=== PATIENT | female | born 1965 | race Hispanic/Latino ===

== ENCOUNTER 2017-10-08 09:28 | Outpatient (CLI) | payer BC ==
--- NOTE | 2017-10-29 12:35 | MMO ---
BILATERAL SCREENING MAMMOGRAM: HISTORY: Annual screening exam. COMPARISON: Exams from 09/30/2016, 03/27/2016, 07/27/2015, 02/03/2015, and 06/24/2012. FINDINGS: Films are reviewed with the assistance of computer aided detection. Scattered fibroglandular changes of both breasts are noted. Calcifications are seen in both breasts. These calcifications appear stable, dating back to the 2014 study, with a slight increase in the nu mber of calcifications since 2011, but they appear to be scattered. IMPRESSION: BI-RADS Category 2: Benign findings. POS: KATARINA
== END 2017-10-08 09:29 | disposition home or self-care (01) ==
LOC: SCSMAMMO 09:28
PROVIDERS: ATTEND Obstetrics & Gynecology
DX: Z12.31 Encounter for screening mammogram for malignant neoplasm of breast (principal)
CPT/HCPCS: 77067; G0202

== ENCOUNTER 2018-10-09 12:33 | Outpatient (CLI) | payer OTHER | END 2018-10-09 12:34 | disposition home or self-care (01) | LOC: BICMAMMO 12:33 | PROVIDERS: ATTEND Obstetrics & Gynecology | DX: Z12.31 Encounter for screening mammogram for malignant neoplasm of breast (principal); Z80.3 Family history of malignant neoplasm of breast | CPT/HCPCS: 77063; 77067 ==

== ENCOUNTER 2019-06-30 16:37 | Outpatient (CLI) | payer BC ==
--- NOTE | 2019-07-01 17:32 | EKG ---
Test Reason : Blood Pressure : / mmHG Vent. Rate : 077 BPM Atrial Rate : 077 BPM P-R Int : 154 ms QRS Dur : 090 ms QT Int : 402 ms P-R-T Axes : 055 039 023 degrees QTc Int : 454 ms Normal sinus rhythm Cannot rule out Anterior infarct , age undetermined Abnormal ECG Confirmed by DOMINICK RIVAS ([id number]) on 07/01/2019 5:31:52 PM Referred By: EMMA Confirmed By:DOMINICK RIVAS
== END 2019-06-30 16:38 | disposition home or self-care (01) ==
LOC: LABBT 16:37
PROVIDERS: ATTEND Obstetrics & Gynecology
DX: Z01.818 Encounter for other preprocedural examination (principal); D25.9 Leiomyoma of uterus, unspecified; R10.2 Pelvic and perineal pain
CPT/HCPCS: 93005; 93010

== ENCOUNTER 2019-11-25 10:40 | Outpatient (CLI) | payer BC ==
--- NOTE | 2019-11-25 12:18 | MRI ---
MRI RIGHT SHOULDER WITHOUT IV CONTRAST: HISTORY: Traumatic complete tear, right rotator cuff, following a lifting injury. TECHNIQUE: Multiplanar, multisequence MR examination of the right shoulder is performed. FINDINGS: There are AC joint arthrosis changes with some downsloping of the anterior and lateral acromion with minimal fluid in the subacromial/subdeltoid bursa. Undersurface spurring of the lateral clavicle. The re is some focal abnormal high signal involving the conjoined tendon region of the supraspinatus tend on and conjoined tendon region with some linear and slightly nodular signal extending into the myoten dinous region, evidence for a delaminating tear with a small sentinel cyst. The focal area of thicken ing of the supraspinatus and conjoined tendon, at the level of the magic angle could well be related to focal tendinopathy. Given history of acute injury, conceivably this could represent some minimal f ocal intratendinous contusion. There is no evidence for a complete retracted tendon tear. The biceps tendon and the subscapularis tendons appear intact. The infraspinatus tendon appears intact. No acute osteochondral defect or significant abnormal marrow signal. IMPRESSION: 1. Focal are of some thickening and increased signal at the level of the magic angle of the supraspin atus and conjoined tendon, possibly focal tendinopathy versus some focal contusion. 2. Interstitial, minimally delaminating tear of the supraspinatus tendon and conjoined tendon, extend ing to the myotendinous region. 3. Minimal fluid in the subacromial/subdeltoid bursa. 4. Acromioclavicular joint arthrosis. 5. The visualized labrum is unremarkable. POS: OFF
== END 2019-11-25 10:41 | disposition home or self-care (01) ==
LOC: SCSMRI 10:40
PROVIDERS: ATTEND Orthopaedic Surgery
DX: S46.011A Strain of muscle(s) and tendon(s) of the rotator cuff of right shoulder, initial encounter (principal); M75.41 Impingement syndrome of right shoulder; S43.431A Superior glenoid labrum lesion of right shoulder, initial encounter; M19.011 Primary osteoarthritis, right shoulder; S46.811A Strain of other muscles, fascia and tendons at shoulder and upper arm level, right arm, initial encounter

== ENCOUNTER 2019-12-02 05:55 | Outpatient (CLI) | payer BC ==
[2019-12-02 17:25] LABS: Hemoglobin 12.4 g/dL (12.0-16.0); Mean Corpuscular HGB CONC 31.1 g/dL (32.0-36.0); Mean Corpuscular Hemoglobin 26.4 pg (27.0-31.0); Mean Corpuscular Volume 84.8 fL (78.0-98.0); Mean Platelet Volume 10.9 fL (7.4-10.4); Platelet Count 189 thou/uL (130-400); RBC Distribution Width 11.9 % (11.5-14.5); Red Blood Cell (RBC) Count 4.72 mill/uL (4.20-5.40); White Blood Cell (WBC) Count 8.3 thou/uL (4.8-10.8)
[2019-12-02 17:41] LABS: Anion Gap 11 mmol/L (10-20); BUN (Urea Nitrogen) 9 mg/dL (9.8-20.1); Calc. Creatinine Clearance 0 mL/min (70-130); Calcium 9.5 mg/dL (7.8-10.44); Carbon Dioxide 28 mmol/L (22-29); Chloride 103 mmol/L (98-107); Estimated GFR-MDRD 76; Glucose 179 mg/dL (70-105); Potassium 3.7 mmol/L (3.5-5.1); Sodium 138 mmol/L (136-145)
== END 2019-12-02 05:56 | disposition home or self-care (01) ==
LOC: LABBT 05:55
PROVIDERS: ATTEND Obstetrics & Gynecology
DX: Z01.818 Encounter for other preprocedural examination (principal); D25.9 Leiomyoma of uterus, unspecified; R10.2 Pelvic and perineal pain
CPT/HCPCS: 80048; 85027; 86850; 86900; 86901; 93005; 93010

== ENCOUNTER 2019-12-07 05:48 | Day surgery (SDC) | payer BC ==
[2019-12-02 15:17] VITALS: BMI 35.7
[2019-12-07] MEDS ORDERED: Gabapentin 300 MG CAP ONE (06:35)
[2019-12-07] MEDS ORDERED: CeleCOXIB 100 MG CAP ONE (06:36)
[2019-12-07] MEDS ORDERED: Famotidine/PF 20 mg/2ml Vial ONE (06:36)
[2019-12-07] MEDS ORDERED: Fentanyl 250 MCG/5 ML VIAL ONE (06:45)
[2019-12-07] MEDS ORDERED: Midazolam HCl 2 mg/2 ml Vial ONE (06:45)
[2019-12-07] MEDS ORDERED: Acetaminophen 500 MG TAB ONE (06:46)
[2019-12-07] MEDS ORDERED: Lidocaine 1% w/Epinephrine 1:100K 20 ML VIAL ONE (07:06)
[2019-12-07] MEDS ORDERED: Bupivacaine PF 0.5% 30 ML VIAL ONE (07:06)
[2019-12-07] MEDS ORDERED: Ropivacaine HCl/PF 750 ML in Premix Bag 1 BAG NERVE BLCK SCH (07:45)
[2019-12-07] MEDS ORDERED: Methylene Blue 50 MG/10 ML AMPUL ONE (09:08)
[2019-12-07] MEDS ORDERED: Simethicone Chewable 80 MG TAB PO PRN (10:56)
[2019-12-07] MEDS ORDERED: HYDROcodone/Acetaminophen 5/325 mg Tablet PO PRN ×2 (10:56)
[2019-12-07] MEDS ORDERED: traMADol HCl 50 MG TAB PO PRN ×2 (10:56)
[2019-12-07] MEDS ORDERED: Promethazine HCl 25 MG/ML VIAL IM PRN ×2 (10:56→11:18)
[2019-12-07] MEDS ORDERED: diphenhydrAMINE 25 MG CAP PO PRN (10:56)
[2019-12-07] MEDS ORDERED: Acetaminophen 325 MG TAB PO PRN (10:56)
[2019-12-07] MEDS ORDERED: Morphine 4 MG/ML VIAL SLOW IVP PRN (10:56)
[2019-12-07] MEDS ORDERED: Bisacodyl 10 MG SUPP PR PRN (10:56)
[2019-12-07] MEDS ORDERED: Ondansetron PF 4 MG/2 ML Vial IVP PRN (10:56)
[2019-12-07] MEDS ORDERED: Zolpidem Tartrate 5 MG TAB PO PRN (10:56)
[2019-12-07] MEDS ORDERED: Promethazine HCl 25 MG/ML VIAL SLOW IVP PRN (11:18)
[2019-12-07] MEDS ORDERED: Ondansetron HCl/PF 4 MG/2 ML Vial IVP PRN (11:18)
[2019-12-07] MEDS ORDERED: Ondansetron PF 4 MG/2 ML Vial ONE (12:06)
[2019-12-07] MEDS ORDERED: Rocuronium Bromide 10 MG/ML (10ML VIAL) ONE (12:06)
[2019-12-07] MEDS ORDERED: PHENYLEPHRINE-NS 100 MCG/ML 10 ML SYRINGE ONE (12:06)
[2019-12-07] MEDS ORDERED: EPHEDRINE 25 MG/5 ML SYRINGE ONE (12:06)
[2019-12-07] MEDS ORDERED: PROPOFOL 200 MG/20 ML VIAL ONE (12:06)
[2019-12-07] MEDS ORDERED: Dexamethasone 20 MG/5 ML VIAL ONE (12:06)
[2019-12-07] MEDS ORDERED: Glycopyrrolate 0.2 MG/ML 5 ML SYRINGE ONE (12:06)
[2019-12-07] MEDS ORDERED: Lidocaine 1% PF 5 ML VIAL ONE (12:06)
[2019-12-07] MEDS: Lactated Ringer's 1,000 ML IV SCH ×2 (13:54→16:53)
[2019-12-07] MEDS: Ibuprofen 800 MG TAB PO SCH ×2 (13:57→23:34)
[2019-12-07] MEDS ORDERED: Dextrose 50% Abboject 50 ML SYRINGE IVP PRN (14:33)
[2019-12-07] MEDS ORDERED: Dextrose 5% in Water 1,000 ML IV PRN (14:33)
[2019-12-07] MEDS: HumaLOG 300 UNITS/3 ML VIAL SC PRN ×2 (14:40→16:54)
[2019-12-07] MEDS ORDERED: metFORMIN 500 MG TAB PO SCH (17:00)
[2019-12-07] MEDS ORDERED: Alogliptin 6.25 MG TAB PO SCH (21:00)
[2019-12-07] MEDS ORDERED: Scopolamine 1.5 mg/72 hour Patch TOP SCH (23:00)
[2019-12-08] MEDS: Ibuprofen 800 MG TAB PO SCH (05:57)
[2019-12-08] MEDS: Lactated Ringer's 1,000 ML IV SCH (05:57)
[2019-12-08] MEDS ORDERED: Levothyroxine Sodium 100 MCG TAB PO SCH (06:00)
[2019-12-08 06:12] LABS: Hemoglobin 11.1 g/dL (12.0-16.0); Mean Corpuscular HGB CONC 34.4 g/dL (32.0-36.0); Mean Corpuscular Hemoglobin 29.4 pg (27.0-31.0); Mean Corpuscular Volume 85.4 fL (78.0-98.0); Mean Platelet Volume 10.9 fL (7.4-10.4); Platelet Count 161 thou/uL (130-400); RBC Distribution Width 11.9 % (11.5-14.5); Red Blood Cell (RBC) Count 3.77 mill/uL (4.20-5.40); White Blood Cell (WBC) Count 11.7 thou/uL (4.8-10.8)
[2019-12-08 06:30] LABS: Anion Gap 12 mmol/L (10-20); BUN (Urea Nitrogen) 8 mg/dL (9.8-20.1); Calc. Creatinine Clearance 118 mL/min (70-130); Carbon Dioxide 26 mmol/L (22-29); Chloride 104 mmol/L (98-107); Estimated GFR-MDRD 78; Glucose 138 mg/dL (70-105); Potassium 3.9 mmol/L (3.5-5.1); Sodium 138 mmol/L (136-145)
[2019-12-08 07:56] VITALS: BP 135/69; TEMP 97.9
--- NOTE | 2019-12-08 08:13 | OP ---
DATE OF PROCEDURE: 12/07/2019 PREOPERATIVE DIAGNOSES: 1. Chronic pelvic pain. 2. Uterine fibroid, possible cervical fibroid. POSTOPERATIVE DIAGNOSES: 1. Chronic pelvic pain. 2. Occiput posterior cervical fibroid. PROCEDURES PERFORMED: 1. Robotic-assisted total laparoscopic hysterectomy with initial myomectomy. 2. Extracorporeal morcellation of the posterior cervical fibroid. 3. Bilateral salpingo-oophorectomy. 4. Cystoscopy. NIPPLE MACHINE OPERATOR: Betty Silverman MD COMPLICATIONS: None. ANESTHESIA: General. ESTIMATED BLOOD LOSS: 50 mL. IV FLUIDS: 1500 mL. URINARY OUTPUT: 350 mL of clear urine. FINDINGS: Normal external genitalia. Normal vaginal and cervical epithelium. Uterus approximately 9 cm in length with a large posterior cervical fibroid. Normal-appearing bilateral fallopian tubes and ovaries. Normal-appearing bladder epithelium and bilateral ureteral efflux noted. INDICATIONS FOR THE PROCEDURE: Ms. Chantell Jackson is a 54-year-old female with a history of a posterior uterine fibroid, thought to possibly be a posterior cervical fibroid and chronic pelvic pain. She had undergone multiple images over the last 6 to 8 months with stabilization of her fibroid. The patient has been counseled on options, but due to the chronic pressure and cold sensation, she desired to have definitive surgical management with a hysterectomy. The patient also desired removal of her fallopian tubes and ovaries due to being in menopause. DESCRIPTION OF PROCEDURE: The patient was brought to the operating room. She was placed under general anesthesia. The patient was given Ancef for surgical prophylaxis as well as ERAS protocol and pain medications. She was placed in dorsal lithotomy position. She was prepped and draped in sterile fashion. An official time-out was performed. A single-sided speculum was placed in the vagina. The anterior aspect of the cervix was grasped with a single-tooth tenaculum and the cervix was sequentially dilated. An 8 mm KVNG manipulator was inserted and a 3.5 mm cup was placed with the ectocervix and is appropriately secured and there was limitations on the manipulation due to the large fibroid that was putting pressure on the posterior cul-de-sac. A Ann catheter was in place. Gloves were changed. Attention was turned to the abdomen. A supraumbilical incision was made. A Veress needle was inserted, noting a normal pressure. Abdomen was insufflated using carbon dioxide. A 12 mm trocar was inserted at this site. The patient was placed in Trendelenburg position noting the findings above. Additional ports were placed using two robotic ports, one on the right and one on the left and an additional 11 mm port on the right aspect of the abdomen, all were placed using local anesthesia and under direct visualization. The pelvis was evaluated noting the findings above. At this time, the supraumbilical incision was extended allowing approximately 2 cm fascial extension. The small Tremaine retractor was inserted and the GelPOINT device was appropriately secured with a [address]. Abdomen was re-insufflated. The Tremaine containment bag has also been placed inside the abdomen prior to reattachment of the GelPOINT. The robot was then docked to the patient. The hysterectomy was begun initially on the left aspect. The left ovary was elevated away from the pelvic sidewall. The left ureter was identified and its course was identified. The left IP ligament was then coagulated multiple times and transected allowing entrance into the broad ligament. The posterior leaf of the broad ligament was then undermined and transected toward the level of the uterus just below the left fallopian tube. The left round ligament was then coagulated multiple times and transected allowing entrance to the anterior leaf of the broad ligament. The anterior leaf of the broad ligament was further dissected and the patient did have scarring from her C-sections and this was taken down in a meticulous dissection on the left aspect. The peritoneum on the left side was then further dissected posteriorly on the left side, keeping in mind the course of the ureter. The posterior cervical fibroid was very broad and near the course of the ureter on the left side. Therefore, that was complete extent of this dissection at that time. Attention was then turned anteriorly. Further anterior resection was done to anteriorly reflect the bladder. The left uterine vessels were then further skeletonized at the level of the internal cervical os. The attention was then turned over to the right aspect. The right fallopian tube and ovary were also elevated away from the pelvic sidewall. The right ureter was also identified transperitoneally. The right IP ligament was coagulated multiple times and transected and this was also followed just below the fallopian tube toward the uterus. The right round ligament was then coagulated multiple times and transected. The anterior aspect was then further transected allowing further inferior reflection of the bladder on the right side. The posterior peritoneum was then also reflected down toward the level of the uterus. The peritoneum along the posterior aspect of the fibroid was then incised allowing the fibroid to be shelled. This was done in a very careful meticulous fashion noting that the tissue was clear and appeared to only the peritoneum with no surrounding structures and this was done in a vertical fashion and the fibroid was then shelled out of this pocket of the peritoneum without difficulty. The uterine vessels were then further skeletonized and then coagulated multiple times and the uterine vessels were then transected. The colpotomy was performed in circumferential fashion initially starting anteriorly and carrying it along the sides and then posteriorly. The uterus, cervix, bilateral fallopian tubes and ovaries were then able to be delivered through the vagina. The pelvis was then irrigated and cleared of all clot and debris. The vaginal cuff was closed in a running fashion using one Stratafix suture. The defect between where the peritoneum had been removed and the vaginal cuff was evaluated and irrigated and hemostatic with the use of the Bovie. This defect was hemostatic with the use of FloSeal as she just had some small areas of generalized oozing and a flap was placed over the posterior aspect of the vaginal cuff. The pelvis again had been irrigated and cleared of all clot and debris. The uterine fibroid was then placed into the Tremaine containment bag. This was brought [facility] to the [facility]. The robot was undocked from the patient and the specimen was removed using extracorporeal morcellation in a C fashion technique. Attention was then turned down to the cystoscopy. A 70 degree cystoscope was inserted into the bladder noting normal bladder epithelium and methylene blue had been given and verified. Bilateral ureteral peristalsis was noted. The cystoscope was then removed. The Ann catheter was replaced. Gloves were again exchanged. The On-Q pump was then placed under direct visualization just below the supraumbilical incision and directed toward the pelvis. The fascia at the supraumbilical incision was closed in a running fashion using 0 Vicryl. The skin was closed using 4-0 Monocryl and Dermabond. The patient tolerated the procedure well. There were no complications. All counts were correct x2. Job ID: [id number]
[2019-12-08] MEDS ORDERED: Lisinopril 20 MG TAB PO SCH (09:00)
--- NOTE | 2019-12-08 13:51 | PRG ---
DATE OF SERVICE: 12/08/2019 HISTORY OF PRESENT ILLNESS: Postoperative day #1, status post robotic assisted total laparoscopic hysterectomy with a bilateral salpingo-oophorectomy with extracorporeal morcellation of the posterior cervical fibroid and cystoscopy. SUBJECTIVE: The patient feels much better this morning. She had some dizziness yesterday evening that has completely resolved. Her pain is minimal with On-Q pain pump. She denies any heavy vaginal bleeding. The patient is voiding, ambulating, and tolerating oral intake, and she is also passing flatus. OBJECTIVE: VITAL SIGNS: Stable. Afebrile. GENERAL: No acute distress. CARDIOVASCULAR: Regular rate. RESPIRATORY: Unlabored breathing. ABDOMEN: Soft. Mild distention. Incision is clean, dry, and intact. On-Q pump was appropriately secured. Mild tenderness to palpation as expected postoperatively. EXTREMITIES: No edema. Negative Homans. LABORATORY DATA: Hemoglobin 11.1, hematocrit 32.2, creatinine is 0.77, all within normal parameters for postoperative day #1. Her blood glucose has improved this morning at 138. ASSESSMENT: Postoperative day #1 status post robotic assisted total laparoscopic hysterectomy with a bilateral salpingo-oophorectomy with extracorporeal morcellation of the posterior cervical fibroid and cystoscopy. PLAN: The patient is meeting all requirements for discharge. We will plan to discharge home this morning with followup in two weeks. Job ID: [id number]
--- NOTE | 2019-12-08 13:54 | DIS ---
DATE OF ADMISSION: 12/07/2019 DATE OF DISCHARGE: 12/08/2019 ADMISSION DIAGNOSES: Postoperative pain control, status post robotic-assisted total laparoscopic hysterectomy with bilateral salpingo-oophorectomy, extracorporeal morcellation and a cystoscopy. DISCHARGE DIAGNOSES: Postoperative pain control, status post robotic-assisted total laparoscopic hysterectomy with bilateral salpingo-oophorectomy, extracorporeal morcellation and a cystoscopy. DISCHARGE PHYSICIAN: Jasmin Pruitt DO BRIEF HOSPITAL COURSE: Ms. Chantell Jackson is a 54-year-old female on postoperative day #1, status post robotic-assisted total laparoscopic hysterectomy with bilateral salpingo-oophorectomy, extracorporeal morcellation and a cystoscopy. She is doing well this morning. Her dizziness that she had yesterday evening has resolved. She is meeting all of her postoperative requirements. Her vital signs and labs are stable. She is voiding, ambulating, tolerating oral intake, and passing flatus. She will be discharged home today to follow up in two weeks. ACTIVITY RESTRICTIONS: No heavy lifting, pushing, or pulling and pelvic rest x6 weeks. MEDICATIONS: 1. Girard 5/325, one tablet every 4 to 6 hours p.r.n. for pain, #20 with zero refills. 2. Motrin 800 mg one tablet every 8 hours p.r.n. for pain, #60 with zero refills. Job ID: [id number]
== END 2019-12-08 09:45 | disposition home or self-care (01) ==
LOC: SDC 05:48 → 3SE 11:01 → SDC 12-08 09:45
PROVIDERS: ATTEND Obstetrics & Gynecology
PROC: 0UT74ZZ Resection of Bilateral Fallopian Tubes, Percutaneous Endoscopic Approach (ICD-10-PCS; principal; 2019-12-08)
PROC: 0UT94ZZ Resection of Uterus, Percutaneous Endoscopic Approach (ICD-10-PCS; principal; 2019-12-08)
PROC: 0UT24ZZ Resection of Bilateral Ovaries, Percutaneous Endoscopic Approach (ICD-10-PCS; principal; 2019-12-08)
DX: D25.2 Subserosal leiomyoma of uterus (principal); N72 Inflammatory disease of cervix uteri; E11.9 Type 2 diabetes mellitus without complications; E03.9 Hypothyroidism, unspecified; F90.0 Attention-deficit hyperactivity disorder, predominantly inattentive type; Z79.899 Other long term (current) drug therapy; Z79.84 Long term (current) use of oral hypoglycemic drugs; Z88.5 Allergy status to narcotic agent
CPT/HCPCS: 36415; 36416; 80048; 85027; 88307; J0690; J1100; J2001; J2250; J2405; J2704; J2795; J3010; Q9968; S0020; S0028